=== PATIENT | female | born 1990 | race Two or more races ===

== ENCOUNTER 2023-05-09 12:29 | Emergency (ER) | payer MEDICAID, OTHER ==
[~2023-05-09] VITALS: Ht 157.5 cm; Wt 72.0 kg
[2023-05-09 12:50] VITALS: BP 121/75; PULSE 102; RESP 16; O2SAT 100
[2023-05-09] MEDS ORDERED: LIDOCAINE 1% HCL (LOCAL ANESTH.) INJ 20ML MDV IJ ONE (14:15)
== END 2023-05-09 15:17 | disposition home or self-care (01) ==
LOC: ER 12:29
DX: N75.1 Abscess of Bartholin's gland (principal)
CPT/HCPCS: 56420; 99284; J2001

== ENCOUNTER 2023-05-11 10:50 | Emergency (ER) | payer MEDICAID ==
[~2023-05-11] VITALS: Ht 157.5 cm; Wt 70.1 kg
[2023-05-11 11:04] VITALS: BP 114/57; PULSE 80; RESP 18; TEMP 98.2; O2SAT 100
== END 2023-05-11 11:27 | disposition home or self-care (01) ==
LOC: ER 10:50
DX: N75.1 Abscess of Bartholin's gland (principal); Z48.01 Encounter for change or removal of surgical wound dressing

== ENCOUNTER 2023-07-23 10:06 | Emergency (ER) | payer OTHER, MEDICAID ==
[~2023-07-23] VITALS: Ht 162.6 cm; Wt 72.0 kg
[2023-07-23 10:56] LABS: Basophils # (auto) 0 10 ^3/uL (0-0.2); Basophils % (auto) 0.7 % (0.0-2.0); Eosinophils # (auto) 0.1 10 ^3/uL (0-0.8); Eosinophils % (auto) 1.2 % (0.0-7.0); Hematocrit 35.8 % (36.0-46.0); Hemoglobin 11.6 g/dL (12.2-16.2); Lymphocytes # (auto) 1.7 10 ^3/uL (0.4-5.4); Lymphocytes % (auto) 37.5 % (10.0-50.0); Mean Corpuscular Hemoglobin 27.2 pg (28.0-32.0); Mean Corpuscular Hgb Conc. 32.4 g/dL (32.0-36.0); Monocytes # (auto) 0.4 10 ^3/uL (0-1.3); Monocytes % (auto) 7.9 % (0.0-12.0); Neutrophils # (auto) 2.4 10 ^3/uL (1.6-8.6); Neutrophils % (auto) 52.7 % (37.0-80.0); Nucleated Red Blood Cells % 0.2 %; Red Blood Cells 4.26 10^6/uL (4.0-5.20); Red Cell Distribution Width 14.8 % (11.8-14.3); White Blood Cell 4.6 10^3/uL (4.4-10.8)
[2023-07-23 11:06] LABS: Chloride 107 mmol/L (98-107); Sodium 139 mmol/L (136-145)
[2023-07-23 11:07] LABS: Anion Gap 4 (5-15); Calcium 9.2 mg/dL (8.5-10.1); Carbon Dioxide 28 mmol/L (20-30)
[2023-07-23 11:11] LABS: Urine Bacteria NONE SEEN /hpf (None Seen); Urine Blood Negative /uL (Negative); Urine Clarity HAZY (Clear); Urine Color Yellow (Yellow); Urine Protein, UAD TRACE (Negative); Urine Specific Gravity 1.025 (1.001-1.035); Urine Urobilinogen Normal (Negative); Urine WBC 6 /hpf (0 - 5)
[2023-07-23 11:12] LABS: BUN/Creatinine Ratio 16.7 (10.0-20.0); Blood Urea Nitrogen 12 mg/dL (9-23); Glucose 78 mg/dL (74-106)
[2023-07-23] MEDS ORDERED: NITR-87 PO (11:44)
[2023-07-23 13:03] VITALS: BP 112/70; PULSE 66; RESP 18; TEMP 97.1; O2SAT 98
== END 2023-07-23 13:02 | disposition home or self-care (01) ==
LOC: ER 10:06
DX: R07.89 Other chest pain (principal); N39.0 Urinary tract infection, site not specified; Z79.899 Other long term (current) drug therapy
CPT/HCPCS: 36415; 71046; 80048; 81001; 84484; 85025; 85379; 93005